=== PATIENT | male | born 1995 | race Hispanic/Latino ===

== ENCOUNTER 2025-08-29 06:15 | Emergency (ER) | payer SELFPAY ==
[2025-08-29 06:20] VITALS: BP 115/71
[2025-08-29 06:52] VITALS: BP 129/82
--- NOTE | 2025-08-29 06:58 | ED.GENMED ---
History of Present Illness
<Francois Saleem MD, Resident - Last Filed: 08/29/25 10:00>
General
Chief Complaint: Chest Pain
Source: patient
Time Seen by Provider: 08/29/25 06:41
History of Present Illness
History of Present Illness:
Patient is a 29-year-old male with PMH of an unspecified congenital 'artery problem' who presents to the [place] ED with 1 month of progressive chest pain. The pain started suddenly approximately 1 month ago, has been progressive in intensity
and frequency, characterized as 'stabbing', 9�10/10 in intensity, and located in the left upper chest with radiation to left back. The pain occurs 10-20 seconds at a time approximately 10 times per day. Nonexertional. Nonpleuritic.
Non-positional. No exacerbating or alleviating factors. No association with eating. No associated symptoms. No recent illnesses, sick contacts, trauma, or travel. No leg pain or swelling. 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
tomatoes. No known occupational chemical exposure. Denies N/V/D, shortness of breath, cough, wheezing, F/F/C. No family history of cardiac, vascular or blood clot problems.
Past History
<Francois Saleem MD, Resident - Last Filed: 08/29/25 10:00>
Past History
ED Past Medical History: Other (Unspecified 'artery')
ED Past Surgical History: None
Social History
Tobacco: Smoker (16 pack years, quit 1 month ago)
Alcohol: Former (4-6 drinks per day until 1 month ago)
Drug: None
Living: with family
Employment: Employed
Review of Systems
<Francois Saleem MD, Resident - Last Filed: 08/29/25 10:00>
Review of Systems
Constitutional: Denies fever, fatigue or chills
Respiratory: Denies cough, hemoptysis or trouble breathing
Cardiac: Reports chest pain
ABD/GI: Denies abdominal pain, nausea, vomiting or diarrhea
: Denies dysuria or bleeding
Musculoskeletal: Denies edema
Neurological: Denies headache, weakness or numbness
Phy Exam
<Francois Saleem MD, Resident - Last Filed: 08/29/25 10:00>
Physical Exam
Physical Exam:
General: NAD. Appears comfortable.
CV: RRR. S1, S2 noted. No M/R/G. No JVD. No LE edema, erythema, or TTP. Pulses 2+ all extremities.
Pulm: CTAB. No wheezes or crackles. No cyanosis.
GI: Soft, nontender. Nondistended.
MSK: Chest and back pain nonreproducible on palpation.
: No CVA tenderness.
Neuro: A&O x 3. No focal deficits. CN II through XII grossly intact.
Scores
<Francois Saleem MD, Resident - Last Filed: 08/29/25 10:00>
Heart Score for Chest Pain Patients
STEMI patient?: No
History: Slightly or Non-Suspicious
ECG: Normal
Age: </= 45 years
Risk Factors: No Risk Factors
Troponin: </= Normal Limit
Heart Score for Chest Pain Patients: 0
Heart Score Risk: 2.5% MACE over next 6 weeks
<Luis Alberto oRdriguez MD - Last Filed: 08/29/25 11:57>
Heart Score for Chest Pain Patients
Heart Score for Chest Pain Patients: 0
Heart Score Risk: 2.5% MACE over next 6 weeks
Course
<Francois Saleem MD, Resident - Last Filed: 08/29/25 10:00>
Orders/Labs/Results
Orders:
Orders
08/29/25 06:28
EKG [Electrocardiogram (*1)] Urgent
Reason for Study: Chest Pain
EKG- Treatment ONCE
08/29/25 08:06
CR Chest - 2 Views Urgent
Comment:
Reason For Exam: chest pain
08/29/25 08:08
Complete Blood Count/With Diff Urgent
Comprehensive Metabolic Panel Urgent
D-Dimer Urgent
Lipase Urgent
Troponin I Urgent
Abnormal Lab Results
08/29/25
08:08
MCH 31.8 H pg
(27.0-31.0)
MPV 11.0 H fL
(7.4-10.4)
Absolute Monos (auto) 0.7 H 10^3/uL
(0.1-0.6)
08/29/25 08:08
08/29/25 08:08
Vital Signs
Initial and Last Documented VS:
Initial Vital Signs
Pulse Resp BP Pulse Ox
64 16 115/71 98
08/29/25 06:20 08/29/25 06:20 08/29/25 06:20 08/29/25 06:20
Last Documented Vital Signs
Temp Pulse Resp BP Pulse Ox
98.8 F 62 19 125/67 97
08/29/25 06:30 08/29/25 10:24 08/29/25 10:24 08/29/25 10:24 08/29/25 09:30
<Luis Alberto Rodriguez MD - Last Filed: 08/29/25 11:57>
Orders/Labs/Results
Orders:
Orders
08/29/25 06:28
EKG [Electrocardiogram (*1)] Urgent
Reason for Study: Chest Pain
EKG- Treatment ONCE
08/29/25 08:06
CR Chest - 2 Views Urgent
Comment:
Reason For Exam: chest pain
08/29/25 08:08
Complete Blood Count/With Diff Urgent
Comprehensive Metabolic Panel Urgent
D-Dimer Urgent
Lipase Urgent
Troponin I Urgent
Abnormal Lab Results
08/29/25
08:08
MCH 31.8 H pg
(27.0-31.0)
MPV 11.0 H fL
(7.4-10.4)
Absolute Monos (auto) 0.7 H 10^3/uL
(0.1-0.6)
08/29/25 08:08
08/29/25 08:08
Vital Signs
Initial and Last Documented VS:
Initial Vital Signs
Pulse Resp BP Pulse Ox
64 16 115/71 98
08/29/25 06:20 08/29/25 06:20 08/29/25 06:20 08/29/25 06:20
Last Documented Vital Signs
Temp Pulse Resp BP Pulse Ox
98.8 F 62 19 125/67 97
08/29/25 06:30 08/29/25 10:24 08/29/25 10:24 08/29/25 10:24 08/29/25 09:30
<Francois Saleem MD, Resident - Last Filed: 08/29/25 10:00>
MDM/Problems Addressed
Differential Diagnosis Includes:
Myocardial infarction
Pulmonary embolism
Aortic dissection
Pneumothorax
Arrhythmia
Costochondritis
Pneumonia
GERD
MDM/Problems Addressed:
Assessment: Patient is a 29-year-old male with PMH of unspecified congenital 'artery problem' who presented to the [place] ED with 1 month of progressive left-sided 'stabbing' chest pain that is 9�10/10 intensity, occurs 10-20 seconds at a time
approximately 10x/day, nonpositional, nonpleuritic, nonreproducible, with radiation to the back and no associated symptoms. EKG in ED unremarkable. AFVSS. Suspect atypical chest pain. Results as follows:
EKG, CBC, CMP, lipase, troponin, D-dimer, CXR unremarkable
Plan:
#Atypical chest pain
EKG
Labs: CBC, CMP, lipase, troponin, d-dimer
Imaging: CXR
Recommend follow-up with [facility]
Recommend OTC PPI for gastroesophageal reflux
<Francois Saleem MD, Resident - Last Filed: 08/29/25 10:00>
*Pulse Oximetry
SaO2: 98
Oxygen Mode of Delivery: Room air
Patient hypoxic: no
*Critical Care Note
Total Time (30-74mins, 75-104mins- exclusive of procedures): Not Applicable
ED Attending Note
<Francois Saleem MD, Resident - Last Filed: 08/29/25 10:00>
-
Portions of this chart may have been created with voice recognition software.� Occasional wrong word or��sound alike� substitutions may have occurred due to the inherent limitations of voice recognition software.
<Luis Alberto Rodriguez MD - Last Filed: 08/29/25 11:57>
ED Attending Note
Patient seen and examined by attending physician: Yes
ED Attending Note:
Patient without any significant past medical history, presents to ED secondary to intermittent left-sided chest pain over the past 1 month. Chest pain described as sharp, with some associated pain in his back and left shoulder, without any
alleviating or exacerbate factors. Chest pain has been lasting few seconds at a time, with spontaneous resolution. Denies trauma. Denies shortness of breath. Denies nausea or vomiting. Denies dizziness. Denies recent illness. Denies recent
change in medications or diet. No recent travel or surgery. Denies leg pain or swelling. Denies family history of early heart disease. Patient does not smoke or drink alcohol. 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
denies any injury at work. At the time of evaluation, patient states that he does not have any chest pain.
Physical Exam
General: no apparent distress, not acutely ill. afebrile
Head: nc/at. eomi
Neck: supple. no meningeal signs
Heart: s1/s2 regular rate and rhythm
Lungs: no acute respiratory distress. clear bilaterally. chest wall nontender to palpation
Abdomen: normal bowel sounds. not tender.
Neuro: alert and oriented x 3. no focal neurological deficits
Skin: no rash
Psychiatric: well kept. interactive and cooperative
Extremities: no edema. no calf tenderness
Patient with an unremarkable workup in ED, including blood work, chest x-ray and EKG. Patient remained chest pain-free during observation. History and exam inconsistent with ACS. As such, patient will be discharged home in stable condition and
referred to and [facility] for reevaluation, as patient is currently uninsured. Patient advised to return to ED with recurrent chest pain. Patient expresses understanding at time of discharge. All questions and answers provided via
american sign language teacher.
Discharge Plan
Departure
Patient Disposition: Home (Routine Discharge)
Date of Disposition: 08/29/25
Time of Disposition: 09:53
Patient with high blood pressure during this ER visit?: No
Condition: Good
Covid-19: Not Applicable
Discharge Problem:
Chest pain
Instructions: Acid Reflux and GERD in Adults (DC), Chest Pain PCP Follow Up
Prescriptions:
No Action
No Current Medications
0
Referrals:
[facility] [Outside]
UNKNOWN - PT DOES,NOT KNOW [Family Provider]
Activity Restrictions/Additional Instructions:
Recommend [id number] proton pump inhibitor for gastroesophageal reflux
Recommend follow-up with [facility]
Return to ED with worsening chest pain, shortness of breath, nausea, or fever
Interventions
Interventions:
*Risk Screen - Suicide Last Done: 08/29/25 06:20
*General Assessment Last Done: 08/29/25 06:20
*Neglect/Abuse Screening Last Done: 08/29/25 06:20
*ED- Fall Risk Assessment Last Done: 08/29/25 06:20
*ED COVID-19 Vaccine History Last Done: 08/29/25 06:20
*ED Influenza Vaccine History Last Done: 08/29/25 06:20
*Nursing Disposition Last Done: 08/29/25 10:29
ED- Cardiac Assessment Last Done: 08/29/25 07:12
Discharge Date and Time
Discharge Date/Time: 08/29/25 10:38
Print Language: KHMER
[2025-08-29 07:00] VITALS: BP 129/79
[2025-08-29 08:00] VITALS: BP 116/72
[2025-08-29 08:16] LABS: Hematocrit 48.4 % (39.0-52.0); Hemoglobin 16.5 g/dL (13.0-18.0); Mean Corp Hgb Conc. 34.1 g/dL (33.0-37.0); Mean Corpuscular Volume 93.3 fL (80.0-94.0); Nucleated Red Blood Cells % 0 % (-); Platelet Count 258 10^3/uL (130-400); Red Cell Dist. Width 12.1 % (11.5-14.5)
[2025-08-29 08:28] LABS: ALT (SGPT) 25 U/L (0-50); AST (SGOT) 31 U/L (17-59); Albumin 4.4 g/dl (3.5-5.0); Alkaline Phosphatase 91 U/L (38-126); Blood Urea Nitrogen 9 mg/dl (9-20); Calcium 9.2 mg/dl (8.4-10.2); Carbon Dioxide 28 mmol/L (22-30); Chloride 104 mmol/L (98-107); Glucose 94 mg/dl (70-99); Lipase 58 U/L (23-300); Potassium 4.0 mmol/L (3.5-5.1); Sodium 136 mmol/L (135-145); Total Protein 7.6 g/dl (6.3-8.2); eGFR > 60.00
[2025-08-29 08:40] LABS: Troponin I < 0.012 ng/ml
[2025-08-29 08:44] LABS: D-Dimer < 0.27 ug/mlFEU (0.00-0.50)
[2025-08-29 09:00] VITALS: BP 111/70
[2025-08-29 10:24] VITALS: BP 125/67
== END 2025-08-29 10:38 | disposition home or self-care (01) ==
LOC: EMR 06:15
PROVIDERS: EMERGENCY PHYSICIAN Emergency Medicine
DX: R07.89 Other chest pain (principal); M54.9 Dorsalgia, unspecified; Q28.9 Congenital malformation of circulatory system, unspecified; Z87.891 Personal history of nicotine dependence; Z59.71 Insufficient health insurance coverage
CPT/HCPCS: 99285; 71046; 80053; 83690; 84484; 85025; 85379; 93005